=== PATIENT | male | born 1955 | race African-American/Black ===

== ENCOUNTER 2016-08-01 21:14 | Emergency (ER) | payer OTHER ==
[~2016-08-01] VITALS: Ht 165.1 cm; Wt 100.0 kg
[2016-08-01] MEDS ORDERED: BACITRACIN ZINC OINT UDPKT TOP ONE (23:00)
[2016-08-01] MEDS ORDERED: LIDOCAINE HCL 1% 20ML VIAL (Pyxis) INJ MC ONE (23:00)
[2016-08-01] MEDS ORDERED: TETANUS, DIPHTHERIA, PERTUSSIS VAC/PF 0.5ML (>7YR OLD) IM ONE (23:00)
[2016-08-02 01:28] VITALS: BP 175/101
== END 2016-08-02 01:30 | disposition home or self-care (01) ==
LOC: ER 21:15
DX: S01.01XA Laceration without foreign body of scalp, initial encounter (principal); I10 Essential (primary) hypertension; F17.200 Nicotine dependence, unspecified, uncomplicated; W22.03XA Walked into furniture, initial encounter; Y93.89 Activity, other specified; Y99.8 Other external cause status; Y92.89 Other specified places as the place of occurrence of the external cause
CPT/HCPCS: 12002; 90471; 90715; 99283; J3490